=== PATIENT | male | born 1965 | race Caucasian/White ===

== ENCOUNTER 2019-07-16 08:56 | Inpatient (IN) ==
--- NOTE | 2019-06-30 14:36 | PAT Medication Instructions ---
Medication Instructions Date of Service June 30, 2019 Home Medications dulaglutide [Trulicity] 0.75 mg SUBCUT WK linagliptin-metformin [Jentadueto] 1 tab PO BID rivaroxaban [Xarelto] 20 mg PO QAM Continue as directed dulaglutide [Trulicity] 0.75 mg SUBCUT WK ASK your prescriber and surgeon rivaroxaban [Xarelto] 20 mg PO QAM DO NOT take the morning of surgery linagliptin-metformin [Jentadueto] 1 tab PO BID Take evening before surgery linagliptin-metformin [Jentadueto] 1 tab PO BID Other Notes If you have any questions please call us at [phone] or [phone] or [phone] or [phone]
--- NOTE | 2019-07-01 14:41 | Anesthesiology Consultation ---
Date of Service July 01, 2019 Assessment & Plan (1) Encounter for pre-operative examination: PCP Clearance 07/14/19 = "Medically clear for proposed surgery. CXR/EKG/labs reviewed. Need to get sugar in better control. Pt reported no symptoms of CP/SOB on exertion." CHECK BSG AM DOS Chart Review Chart Review: Acceptable Risk for Surgery and Patient seen in Pre Admission Testing Teaching & Discussion Instructed NPO after midnight before surgery, except medications with 15 cc of water. Medication instructions provided according to the PAT guidelines. History Surgery Operation Date: 07/16/19 10:35 Proposed Procedures p L1-L3 Decompression and Fusion, T12 Possible, L3-L4 Hardware Removal with Spinal Cord Monitoring - Alvino Barros, Height/Weight Height: 6 ft 1 in Weight: 144.8 kg Allergies Allergy/AdvReac Type Severity Reaction Status Date / Time No Known Allergies Allergy Verified 06/27/19 15:01 Medications Home Medications Medication Instructions Recorded Confirmed Last Taken dulaglutide [Trulicity] 0.75 mg SUBCUT WK 06/27/19 06/27/19 Unknown linagliptin-metformin [Jentadueto] 1 tab PO BID 06/27/19 06/27/19 Unknown rivaroxaban [Xarelto] 20 mg PO QAM 06/27/19 06/27/19 Unknown Past Medical History Medical History (Updated 07/15/19 @ 09:36 by Mark Sanderson) Deep vein thrombosis DVT 5 YEARS AGO IN [place] (REASON FOR XARELTO). PT UNSURE OF CAUSE OF DVT, WAS NOT SEEN BY HEME Diabetes mellitus, type 2 Gout Heart palpitations Patient describes sensation of heart racing for 5-10 mins every month or so, accompanied by dry mouth/anxiety. History of atrial flutter Post operative 2016 after lumbar fusion. Cardioverted as inpatient, returned to [facility] due to postoperative stress, no cardiac follow up and no further issues. Morbid obesity Osteoarthritis Sleep apnea CPAP Exercise / Class Metabolic Activity III < 4 Walking/Shop/Light housework (DENIES CP OR SOB WITH AMBULATION. DOES NOT DO STAIRS, MINIMAL ACTIVITY.) Past Family History Family History Mother Family history of diabetes mellitus Father Family history of diabetes mellitus Past Surgical History Surgical History Fusion of spine LUMBAR History of colonoscopy History of total knee replacement RT/LEFT Hx of vasectomy [place] teeth removed Past Anesthesia History No Hx of Anesthesia Complications and No Family Hx of Anesthesia Complications History of PONV No Hx of PONV and Hx of Motion Sickness Social History Smoking Status: Never smoker Do You Dip or Chew Tobacco: No Hx Alcohol Use: Yes Alcohol type: beer alcohol intake frequency: holidays/special occasions only Hx Substance Use: No substance use type: does not use Review of Systems Pt denies any recent chest pain, shortness of breath, cough, fever or URI. Occasional palpitations. Physical Exam Vital Signs BP: 148/83 P: 91bpm SPO2: 97% RA T: 98.3 F R: 16 Constitutional + morbidly obese ENMT Mouth: + macroglossia; no dental restorations, no chipped teeth and no loose teeth Thyromental Distance: > or= 3.5 Finger Breadths (4) Mallampati Class: I Neck + thick neck; neck extension not limited Respiratory normal respiratory effort Auscultation: lungs clear to auscultation bilaterally Cardiovascular Rate/Rhythm: regular rate and regular rhythm Heart Sounds: no murmur Vessels: no carotid bruit Extremities: no edema Psychiatric Affect: + flat affect Testing Laboratory Results 07/01/19 14:36 07/01/19 14:30 PT 15.6 Seconds (9.0-12.0) H 07/01/19 14:36 INR 1.6 (0.9-1.1) H 07/01/19 14:36 APTT 28.6 Seconds (21.0-31.0) 07/01/19 14:36 Urine Color Yellow 07/01/19 14:30 Urine Appearance Clear (Clear) 07/01/19 14:30 Urine pH 5.5 (4.5-7.5) 07/01/19 14:30 Ur Specific Tamiment 1.020 (1.000-1.030) 07/01/19 14:30 Urine Protein 1+ (Negative) H 07/01/19 14:30 Urine Glucose (UA) Negative (Negative) 07/01/19 14:30 Urine Ketones Negative (Negative) 07/01/19 14:30 Urine Nitrite Negative (Negative) 07/01/19 14:30 Ur Leukocyte Esterase Negative (Negative) 07/01/19 14:30 Urine WBC (Auto) 0 /hpf (0-5) 07/01/19 14:30 Urine RBC (Auto) 0-4 /hpf (0-4) 07/01/19 14:30 U Hyaline Cast (Auto) 0 /lpf (0-5) 07/01/19 14:30 U Epithel Cells (Auto) 5-10 /lpf (0-5) H 07/01/19 14:30 Urine Bacteria (Auto) Negative (Negative) 07/01/19 14:30 Blood Type A Positive 07/01/19 14:36 Antibody Screen NEGATIVE 07/01/19 14:36 A1C 05/31/19 = 8.9%* *Surgeon's office notified of elevated A1C Electrocardiogram Date: 07/01/19 Chest X-Ray Date: 07/01/19 FINDINGS: There is mild elevation/eventration right hemidiaphragm. There is no focal pulmonary consolidation. There is no failure. There are no pleural effusions.[Prominent right superior hilar markings are felt to be secondary to a vascular summation. IMPRESSION: No active disease in the chest.
[2019-07-01 15:03] LABS: Basophils # (auto) 0.04 K/uL (0-0.2); Basophils % (auto) 0.4 %; Eosinophils # (auto) 0.12 K/uL (0-0.5); Eosinophils % (auto) 1.3 %; Hematocrit (blood only) 44.5 % (42-52); Hemoglobin 16.5 g/dL (14.0-18.0); Immature Granulocytes # (auto) 0.04 K/uL (0.00-0.02); Immature Granulocytes % (auto) 0.4 %; Lymphocytes # (auto) 2.96 K/uL (1.2-3.4); Lymphocytes % (auto) 31.5 %; Mean Corpuscular Hemoglobin 31.4 pg (25-34); Mean Corpuscular Hgb Conc 37.1 g/dL (32-36); Mean Corpuscular Volume 84.8 fL (80-100); Mean Platelet Volume 8.5 fL (7.4-10.4); Monocytes # (auto) 0.85 K/uL (0.11-0.59); Neutrophils % (auto) 57.4 %; Platelet Count 229 K/uL (130-400); RDW Coefficient of Variation 12.5 % (11.5-14.5); Red Blood Count 5.25 M/uL (4.7-6.1); White Blood Count 9.41 K/uL (4.8-10.8)
[2019-07-01 15:23] LABS: BUN Creatinine Ratio 15.2 (10-20); Creatinine Clr Calc Pharmacy 126.6 ml/min; Est GFR (Non-African American) 84.5; Potassium 4.7 mmol/L (3.5-5.1)
[2019-07-01 15:30] LABS: INR 1.6 (0.9-1.1); Partial Thromboplastin Ratio 1.1; Partial Thromboplastin Time 28.6 Seconds (21.0-31.0); Prothrombin Time 15.6 Seconds (9.0-12.0)
--- NOTE | 2019-07-01 15:31 | XRay Report ---
XR chest Pre-admission PA/Lat CLINICAL HISTORY: Preoperative chest COMPARISON STUDY: 02/18/2016 FINDINGS: There is mild elevation/eventration right hemidiaphragm. There is no focal pulmonary consol idation. There is no failure. There are no pleural effusions.[Prominent right superior hilar markings are felt to be secondary to a vascular summation. IMPRESSION: No active disease in the chest. Electronically signed by: Srinivasan Yang M.D. 07/01/2019 3:29 PM
[2019-07-01 15:32] LABS: Appearance Urine Clear (Clear); Bacteria Urine Automated Negative (Negative); Bilirubin Urine Negative (Negative); Blood Urine Negative (Negative); Cast Urine Automated 0 /lpf (0-5); Color Urine Yellow; Glucose Urine UA Negative (Negative); Ketones Urine Negative (Negative); Leukocyte Esterase Urine Negative (Negative); Nitrite Urine Negative (Negative); Protein Urine 1+ (Negative); RBC Urine Automated 0-4 /hpf (0-4); Urobilinogen Urine Negative (Negative); WBC Urine Automated 0 /hpf (0-5); pH Urine 5.5 (4.5-7.5)
[~2019-07-16 08:56] MED LIST: ACETAMINOPHEN 500 MG TAB PO SCH; CEFAZOLIN 3000MG 72.5 ML IV SCH; CeleBREX 200 MG CAP PO SCH; GABAPENTIN 900 MG DOSE PO SCH; LR 15ML/HR IV SCH
[2019-07-16] MEDS ORDERED: HYDROmorphone INJ 2 MG/ML SYR/VIAL ONE ×3 (09:06→13:57)
[2019-07-16] MEDS ORDERED: GLYCOPYRROLATE 0.2 MG/ML VIAL ONE (09:09)
[2019-07-16] MEDS ORDERED: ONDANSETRON INJ 2 MG/ML 2 ML VIAL ONE ×2 (09:09→13:29)
[2019-07-16] MEDS ORDERED: DEXAMETHASONE SOD INJ 4 MG/ML VIAL ONE (09:09)
[2019-07-16] MEDS ORDERED: PROPOFOL IV EMULSION 10 MG/ML 20 ML VIAL IV ONE ×2 (09:09→11:25)
[2019-07-16] MEDS ORDERED: ROCURONIUM BROMIDE 10 MG/ML 5 ML VIAL ONE ×2 (09:09→13:00)
[2019-07-16] MEDS ORDERED: LIDOCAINE HCL 2% 2 ML VIAL/AMP(20MG/ML) INFIL ONE (09:09)
[2019-07-16] MEDS ORDERED: NEOSTIGMINE METHYLSULFATE 1 MG/ML 10ML VIAL ONE (09:09)
[2019-07-16] MEDS ORDERED: MIDAZOLAM HCL 1 MG/ML 2ML VIAL ONE (09:56)
[2019-07-16] MEDS ORDERED: fentaNYL citrate 100 MCG/2 ML VIAL ONE ×7 (09:56→13:30)
--- NOTE | 2019-07-16 10:22 | History & Physical Bridge Note ---
Date of Service July 16, 2019 History & Physical Bridge Note I have examined the patient, reviewed the History & Physical and in the interval since the performance of the History & Physical I have noted the following changes of clinical significance: no changes noted
--- NOTE | 2019-07-16 10:23 | History & Physical Report ---
Date of Service July 16, 2019 Assessment & Plan (1) Spinal stenosis, lumbar region with neurogenic claudication: L1 L3 decompression and fusion possible T12, L3-L4 hardware removal. Present on Admission?: Yes History of Present Illness Chief Complaint: Back and leg pain Primary Care Provider: Shanita Mi This is a 54-year-old male who presents with chronic persistent back and bilateral leg pain. After failing extensive course of nonoperative care is here for surgical intervention. Allergies Allergy/AdvReac Type Severity Reaction Status Date / Time No Known Allergies Allergy Verified 07/16/19 09:14 Home Medications Home Medications Medication Instructions Recorded Confirmed Type dulaglutide [Trulicity] 0.75 mg SUBCUT WK 06/27/19 07/16/19 History linagliptin-metformin [Jentadueto] 1 tab PO BID 06/27/19 07/16/19 History rivaroxaban [Xarelto] 20 mg PO QAM 06/27/19 07/16/19 History Past Med/Surg History Medical History (Updated 07/16/19 @ 10:23 by Alvino Barros DO) Deep vein thrombosis DVT 5 YEARS AGO IN [place] (REASON FOR XARELTO). PT UNSURE OF CAUSE OF DVT, WAS NOT SEEN BY HEME Diabetes mellitus, type 2 Gout Heart palpitations Patient describes sensation of heart racing for 5-10 mins every month or so, accompanied by dry mouth/anxiety. History of atrial flutter Post operative 2015 after lumbar fusion. Cardioverted as inpatient, returned to [facility] due to postoperative stress, no cardiac follow up and no further issues. Morbid obesity Osteoarthritis Sleep apnea CPAP Surgical History Fusion of spine LUMBAR History of colonoscopy History of total knee replacement RT/LEFT Hx of vasectomy [place] teeth removed Family History Mother Family history of diabetes mellitus Father Family history of diabetes mellitus Social History Preferred Language: Croatian Communication Ability: Effective Molder Operator Required: No Beliefs That Will Affect Care: None Current Living Situation: Alone Feels Safe at Home: Yes Safety Concerns: Feels Safe At This Time Smoking Status: Never smoker Do You Dip or Chew Tobacco: No ; Second Hand Exposure: No ; Tobacco Cessation Education Requested by Patient: No Hx Alcohol Use: Yes Alcohol type: beer Hx Substance Use: No Physical Exam Physical Exam: Patient is alert and oriented neurologically intact. Results & Data Vital Signs (Past 12 Hours) Vital Signs Temp Pulse Resp BP Pulse Ox 07/16/19 09:17 36.6 C 76 18 156/106 H 98
[2019-07-16] MEDS ORDERED: BUPIVACAINE/EPINEPHRINE 0.5% MPF 1:200,000 10 ML VIAL ONE (10:35)
[2019-07-16] MEDS ORDERED: BACITRACIN INJ 50,000 UNIT VIAL ONE (10:36)
[2019-07-16] MEDS ORDERED: HYDROmorphone INJ 1 MG/ML SYRINGE IV PRN ×2 (10:39→15:26)
[2019-07-16] MEDS ORDERED: ONDANSETRON INJ 2 MG/ML 2 ML VIAL IV PRN ×2 (10:39→15:26)
[2019-07-16] MEDS ORDERED: ATROPINE SULFATE 0.1 MG/ML 10ML SYR IV PRN (10:39)
[2019-07-16] MEDS ORDERED: LABETALOL HCL IV 5 MG/ML 20ML IV PRN (10:39)
[2019-07-16] MEDS ORDERED: THROMBIN FOR SOLN 20000 UNIT KIT ONE (10:46)
[2019-07-16] MEDS ORDERED: FLOSEAL HEMOSTATIC MATRIX 10ML TOP ONE (11:17)
[2019-07-16] MEDS ORDERED: VOLUVEN IN NSS IV ONE ×2 (12:50→13:17)
[2019-07-16] MEDS ORDERED: LARYING-O-JET KIT (LTA) ONE (12:50)
[2019-07-16] MEDS ORDERED: ePHEDrine sulfate 50 MG/ML AMP ONE (13:29)
[2019-07-16] MEDS ORDERED: KETOROLAC 30 MG/ML VIAL ONE (13:29)
--- NOTE | 2019-07-16 13:30 | Operative Report ---
Post Operative Report Pre & Post Diagnosis Operation Date: 07/16/19 10:35 Pre-Op Diagnosis: Lumbar spinal stenosis with neurogenic claudication Morbid obesity Post-Op Diagnosis: Same I identified the patient and participated in the time-out.: Yes Procedure Operation Date: 07/16/19 10:35 Actual Procedures #1 removal of posterior instrumentation L3-L4. #2 exploration of fusion L3-L4. #3 lumbar decompression with bilateral medial facetectomies and foraminotomies L1-L2 3. #4 posterior spinal fusion T12-L1 L1 L2-L3-L4. #5 placement posterior segmental instrumentation T12-L4. #6 interbody fusion L2-3. #7 placed a peek cage 12 x 26 mm at L2-3. #8 placement of locally harvested morselized autograft in the posterior lateral gutters per #9 placement infuse collagen sponge, master graft in the posterior lateral gutters and ostial amp and interbody space. Surgeon Alvino Barros, DO Extension Work Instructor Yuliya Theodore Estimated Blood Loss 575 Findings See Below The patient is 6 feet 3 inches tall weighing over 145 kg with a BMI in excess of 40. This combined with a blood loss in excess of 575 cc created significant technical difficulty throughout the procedure adding at least 50% increase in operative time. Specimens None Indications This is a 54-year-old male who presents with above-mentioned diagnosis after failed extensive course of nonoperative care is here for surgical intervention. Description of Procedure Was prepped and draped in normal sterile fashion. Sharp dissection with the assistance of Bovie cautery was performed down to and exposing the lamina and transverse processes of T12 L1-L2 and the instrumentation L3 and L4 bilaterally. And then proceed remove the hardware bilaterally explore the fusion mass noting it to be intact. Then performed a complete laminectomy of L2 and L1 from a caudal cephalad fashion including bilateral medial facetectomies and foraminotomies addressing severe stenosis. Pedicle screws were then placed in T12-L1 L2-L3-L4 bilaterally with assistance of fluoroscopy the process rad placed. By way of a transforaminal approach on the right a complete discectomy was performed endplates curetted to subcortical bleeding bone and a 12 x 26 mm peek cage filled with osteo-amp bone graft tapped in position. The rods were then locked in final position bilaterally. Transverse processes of T12 L1-L2-L3 burred to subcortical bleeding bone infuse collagen sponge master graft and local autograft was then placed in the posterior lateral gutters. 15 round GENTRY drain inserted. The incision was then closed with 1 Vicryl in the fascia 2-0 Vicryl subcutaneously and 4 Monocryl for final skin closure. Steri-Strip sterile dressings placed. Patient will continue PACU stable condition. Please note spinal cord monitoring was utilized that the procedure no changes noted. Lastly Yuliya Theodore was present for the entire procedure involved in patient positioning complex portions of the surgery and final skin closure. I attest to the content of the Intraoperative Record and any orders documented therein. Any exceptions are noted below.
[2019-07-16] MEDS ORDERED: ESMOLOL HCL INJ 10 MG/ML 10ML VIAL IV ONE (13:34)
--- NOTE | 2019-07-16 13:58 | Fluoroscopy Report ---
FL lumbar spine 2-3V CLINICAL HISTORY: 54 years-old Male presenting with L1-L3 DECOMPRESSION AND FUSION. TECHNIQUE: 4 fluoroscopic image(s) recorded as part of an intraoperative procedure. COMPARISON: 02/15/2016. FINDINGS/IMPRESSION: Prior posterior fusion hardware at L3-4 has been replaced with more extended posterior fusion hardwar e spanning from L4 inferiorly to T12 superiorly. Interbody spacers at L2-3 and L3-4 as well as pratima ctomy defects. Please see surgical report for further details. Fluoroscopy dosage (mGy): 23.09. Fluoroscopy time: 27.8 seconds. Number or time of high level fluoroscopy (HLF), digital spot, or digital subtraction images: 0. Electronically signed by: Roberto Saunders M.D. 07/16/2019 1:57 PM
--- NOTE | 2019-07-16 14:30 | Anesthesiology Progress Note ---
Date of Service July 16, 2019 Anesthesia Post Procedure Vital Signs Vital Signs: Temp Pulse Pulse Resp BP Pulse Ox 07/16/19 14:20 77 14 137/74 99 07/16/19 14:10 78 14 153/75 H 99 07/16/19 14:00 82 12 147/86 H 100 07/16/19 13:50 36.2 C L 77 12 137/77 100 07/16/19 09:17 36.6 C 76 18 156/106 H 98 Pain Intensity Lower Back: Pain Intensity: 2 Transfer of Care Handoff Completed per policy Notes Mental Status: alert / awake / arousable Patient Amnestic to Procedure: Yes Nausea / Vomiting: adequately controlled Pain: adequately controlled Airway Patency, RR, SpO2: stable & adequate BP & HR: stable & adequate Hydration State: stable & adequate Anesthetic Complications: no major complications apparent
[2019-07-16] MEDS: SODIUM CHLORIDE 0.9% 1000ML 1,000 ML IV SCH ×2 (15:15→21:45)
[2019-07-16] MEDS ORDERED: NALOXONE HCL 0.4 MG/1 ML VIAL/CARP IV PRN (15:26)
[2019-07-16] MEDS ORDERED: DO NOT ADMINISTER FLU VACCINE PRN (15:26)
[2019-07-16] MEDS ORDERED: ALUMINUM/MAGNESIUM SUSP 30 ML UDC PO PRN (15:26)
[2019-07-16] MEDS ORDERED: DO NOT ADMINISTER PNEUMOCOCCAL VACCINE PRN (15:26)
[2019-07-16] MEDS ORDERED: LORazepam 0.5 MG TAB PO PRN (15:26)
[2019-07-16] MEDS ORDERED: MAGNESIUM HYDROXIDE SUSP 30 ML UDC PO PRN (15:26)
[2019-07-16] MEDS ORDERED: FAMOTIDINE 20 MG TAB PO PRN (15:26)
[2019-07-16] MEDS ORDERED: METOCLOPRAMIDE HCL INJ 5 MG/ML 2 ML VIAL IV PRN (15:26)
[2019-07-16] MEDS ORDERED: HYDROmorphone INJ 0.5 MG/0.5 ML SYR IV PRN (15:26)
[2019-07-16] MEDS ORDERED: SOD PHOSPHATE/SOD BIPHOSPHATE ENEMA 132 ML BTL PR PRN (15:26)
[2019-07-16] MEDS ORDERED: bisacodyL 10 MG SUPP PR PRN (15:26)
[2019-07-16] MEDS ORDERED: ONDANSETRON 4 MG OD TAB PO PRN (15:26)
[2019-07-16] MEDS ORDERED: PROMETHAZINE HCL 12.5 MG in SODIUM CHLORIDE 0.9% 50 ML IV PRN (15:26)
[2019-07-16] MEDS ORDERED: LORazepam 0.5 MG/1 ML VIAL IV PRN (15:26)
[2019-07-16] MEDS ORDERED: ACETAMINOPHEN 1,000 MG/100 ML VIAL IV PRN (15:26)
--- NOTE | 2019-07-16 16:20 | Hospitalist Consultation ---
Date of Consultation July 16, 2019 Assessment & Plan (1) Spinal stenosis, lumbar region with neurogenic claudication: S/p lumbar surgery with Dr. Barros on 07/16. Complicated operative procedure with EBL of 575 mL. - Post-operative care per primary team. - Will track hgb given his significant operative blood loss (2) Diabetes mellitus, type 2: Unknown A1c. Only on oral meds. - Hold home meds - Sliding scale insulin (3) Sleep apnea: - Ordering CPAP. (4) History of atrial flutter: EKG in 06/2019 showed normal sinus. Will monitor HR. Presently in a stable rhythm and normal rate. - Monitor (5) Deep vein thrombosis: In approx 2013. - SCDs - Restart Xarelto as soon as ok with surgery. History of Present Illness Attending Physician: Alvino Barros, DO History of Present Illness 54yo M w/ hx of diabetes and remote DVT who presents as a medical consult after a lumbar surgery with Dr. Barros. Per the operative report, it was a somewhat difficult procedure due to his obesity and blood loss. At present, he is somewhat fatigued and nauseated from the anesthesia. Per the PACU, he had a period of prolonged hypoxemia after extubation for which they kept him under monitoring for a longer period of time. He notes that he had a prior DVT "years" ago and was put on Xarelto at that time. He has not had any complications from his anticoagulation use. Allergies Allergy/AdvReac Type Severity Reaction Status Date / Time No Known Allergies Allergy Verified 07/16/19 09:14 Home Medications Home Medications Medication Instructions Recorded Confirmed Type dulaglutide [Trulicity] 0.75 mg SUBCUT WK 06/27/19 07/16/19 History linagliptin-metformin [Jentadueto] 1 tab PO BID 06/27/19 07/16/19 History rivaroxaban [Xarelto] 20 mg PO QAM 06/27/19 07/16/19 History Patient History Medical History Deep vein thrombosis DVT 5 YEARS AGO IN [place] (REASON FOR XARELTO). PT UNSURE OF CAUSE OF DVT, WAS NOT SEEN BY HEME Diabetes mellitus, type 2 Gout Heart palpitations Patient describes sensation of heart racing for 5-10 mins every month or so, accompanied by dry mouth/anxiety. History of atrial flutter Post operative 2016 after lumbar fusion. Cardioverted as inpatient, returned to [facility] [place] due to postoperative stress, no cardiac follow up and no further issues. Morbid obesity Osteoarthritis Sleep apnea CPAP Surgical History Fusion of spine LUMBAR History of colonoscopy History of total knee replacement RT/LEFT Hx of vasectomy [place] teeth removed Family History Mother Family history of diabetes mellitus Father Family history of diabetes mellitus Social History Preferred Language: Gabonese Communication Ability: Effective Leader Assembler Required: No Beliefs That Will Affect Care: None Current Living Situation: Alone Feels Safe at Home: Yes Safety Concerns: Feels Safe At This Time Smoking Status: Never smoker Do You Dip or Chew Tobacco: No ; Second Hand Expos ure: No ; Tobacco Cessation Education Requested by Patient: No Hx Alcohol Use: Yes Alcohol type: beer Hx Substance Use: No Review of Systems Review of Systems: All systems reviewed & are unremarkable except as noted in HPI & below Physical Exam Constitutional: well developed, + morbidly obese and cooperative; + uncomfortable Eyes: EOM intact bilaterally; no conjunctival abnormality ENMT: external ear and nose normal, oropharynx normal Neck: trachea midline, no thyromegaly normal visual inspection Respiratory: normal respiratory effort, lungs clear to auscultation no respiratory distress Cardiovascular: RRR, no murmur, no edema Gastrointestinal (Abdomen): Inspection/Auscultation: abdomen normal to inspection and normal bowel sounds; abdomen not distended Percussion/Palpation: abdomen nontender Musculoskeletal: no cyanosis or clubbing, extremities motor strength 5/5 Spine: + lumbar spinal tenderness (Drain in place. Dressing clean/dry/intact.) Skin: no rashes, warm and dry Neurologic: moves all extremities and awake Psychiatric: Orientation: alert, oriented to person and cooperative Results & Data Vital Signs (Past 12 Hours) Vital Signs Temp Pulse Pulse Resp BP Pulse Ox 07/16/19 15:45 37.0 C 83 18 143/75 H 95 07/16/19 15:00 68 14 137/72 99 07/16/19 14:50 78 14 114/74 100 07/16/19 14:40 36.4 C L 66 14 150/70 H 99 07/16/19 14:30 36.4 C L 66 14 134/63 99 07/16/19 14:20 77 14 137/74 99 07/16/19 14:10 78 14 153/75 H 99 07/16/19 14:00 82 12 147/86 H 100 07/16/19 13:50 36.2 C L 77 12 137/77 100 07/16/19 09:17 36.6 C 76 18 156/106 H 98 PG Care Time/CCT Total # of Minutes Spent Total Time Spent with Patient: Total time spent is greater than 50% in coordination of care (as documented) at patient's floor/unit and/or counseling patient:
[2019-07-16] MEDS ORDERED: GLUCOSE 40% GEL 15 GM TUBE PO PRN (16:39)
[2019-07-16] MEDS ORDERED: DEXTROSE 50% 50 ML SYRINGE IV PRN (16:39)
[2019-07-16] MEDS ORDERED: CARBOHYDRATES FOR HYPOGLYCEMIA PO PRN (16:39)
[2019-07-16] MEDS ORDERED: GLUCOSE 10 TABS/TUBE PO PRN (16:39)
[2019-07-16] MEDS ORDERED: GLUCAGON FOR INJ 1 MG VIAL SQ PRN (16:39)
[2019-07-16] MEDS: CEFAZOLIN 2000MG 2,000 MG/15 ML SYR IV SCH (17:02)
[2019-07-16] MEDS: KETOROLAC 30 MG/ML VIAL IV SCH (17:02)
[2019-07-16] MEDS ORDERED: Nursing to Pharmacy Communication ONE (17:38)
[2019-07-16] MEDS: INSULIN ASPART 100 UNITS/ML 3 ML PEN SC SCH ×3 (17:46→20:56)
[2019-07-16] MEDS ORDERED: PHARMACY GLYCEMIC MGMT CONSULT PRN (19:31)
[2019-07-16] MEDS ORDERED: INSULIN GLARGINE SOLOSTAR 100 UNITS/ML 3 ML PEN SC ONE (20:00)
--- NOTE | 2019-07-16 20:25 | Pharmacy Report ---
Glycemic Control Consultation - Date of Service July 16, 2019 - Scope Scope: Glycemic Pharmacist consulted by Dr Mccrary on 07/16/19 for glycemic control and to write orders per [facility] inpatient glycemic control protocol - Objective Weight: 145.6 kg Accuchecks BSG (last 24hrs): 07/16/19 07/16/19 07/16/19 09:16 13:52 17:25 POC Glucose 243 H 244 H 379 H* 07/16/19 07/16/19 17:28 18:56 POC Glucose 378 H* 405 H* - Recent Pertinent Medications Outpatient Anti-diabetic Regimen: * Trulicity 0.75 mg SC weekly on Fridays * Jentadueto 2.12/999 mg PO BID * A1c pending for 07/17/19 AM The patient is currently receiving: * Basal insulin: N/A * Correctional Insulin: Novolog Correction per scale ACHS Goal Range: Low 100 mg/dL - High 140 mg/dL Correction Factor: 15 mg/dL/unit * Prandial insulin: Per carb ratio of 1 unit per 6 grams CHO consumed Risk Factors for Insulin Resistance: * Steroids: Dexamethasone 12 mg IV x 1 intraoperatively * Recent Surgery: POD #0 s/p spinal decompression/fusion * Diet:T2DM - Assessment & Plan Assessment & Plan: ASSESSMENT: * RM is a 54 year old male POD #0 s/p spinal decompression and fusion * Patient received 12 mg of dexamethasone IV intraoperatively * BSG postop was 244 mg/dL and increased to 405 mg/dL at dinnertime - pharmacy consulted at this time * A1c pending for tomorrow AM PLAN FOR INPATIENT GLYCEMIC CONTROL: * Holding outpatient oral diabetes medications * Basal insulin * Lantus 45 units given this evening (0.4 unit/kg of adjusted body weight of 109 kg) * Bolus insulin - tighten * NovoLog per scale ACHS or Q6hrs while NPO * Goal Range: Low 110 mg/dL - High 140 mg/dL * Correction Factor: 10 mg/dL/unit * Nutritional / Prandial insulin per carb ratio of 1 unit per 4 grams CHO consumed * Overnight checks at 00,04 with same parameters * Please note that the plan above was derived based on current level of insulin resistance and hospital stress. These recommendations are appropriate for inpatient admission only. Plan of care upon discharge will need to be reassessed to avoid potential outpatient hypo/hyperglycemia. Thank you.
[2019-07-16] MEDS: DOCUSATE SODIUM/SENNA 50/8.6MG TAB PO SCH (20:57)
[2019-07-16] MEDS: OXYCODONE HCL IR 5 MG TAB (IMMEDIATE RELEASE) PO PRN (21:48)
[2019-07-17] MEDS: KETOROLAC 30 MG/ML VIAL IV SCH ×3 (00:08→11:05)
[2019-07-17] MEDS: INSULIN ASPART 100 UNITS/ML 3 ML PEN SC SCH ×6 (00:09→20:51)
[2019-07-17] MEDS: CEFAZOLIN 2000MG 2,000 MG/15 ML SYR IV SCH (01:52)
[2019-07-17] MEDS: POLYETHYLENE (MIRALAX) 17 GM PACK PO SCH ×3 (05:17→19:43)
[2019-07-17 06:43] LABS: Basophils # (auto) 0.01 K/uL (0-0.2); Basophils % (auto) 0.1 %; Eosinophils # (auto) 0.02 K/uL (0-0.5); Eosinophils % (auto) 0.1 %; Hematocrit (blood only) 32.3 % (42-52); Hemoglobin 11.6 g/dL (14.0-18.0); Immature Granulocytes # (auto) 0.04 K/uL (0.00-0.02); Immature Granulocytes % (auto) 0.3 %; Lymphocytes # (auto) 1.55 K/uL (1.2-3.4); Lymphocytes % (auto) 11.1 %; Mean Corpuscular Hemoglobin 30.9 pg (25-34); Mean Corpuscular Hgb Conc 35.9 g/dL (32-36); Mean Corpuscular Volume 85.9 fL (80-100); Mean Platelet Volume 7.9 fL (7.4-10.4); Monocytes # (auto) 1.41 K/uL (0.11-0.59); Monocytes % (auto) 10.1 %; Neutrophils # (auto) 10.94 K/uL (1.4-6.5); Neutrophils % (auto) 78.3 %; Platelet Count 185 K/uL (130-400); RDW Coefficient of Variation 12.6 % (11.5-14.5); RDW Standard Deviation 39.1 fL (36.4-46.3); Red Blood Count 3.76 M/uL (4.7-6.1); White Blood Count 13.97 K/uL (4.8-10.8)
[2019-07-17 07:06] LABS: BUN Creatinine Ratio 12.4 (10-20); Calcium 8.5 mg/dl (8.5-10.1); Est GFR (African American) 91.4; Est GFR (Non-African American) 78.8; Potassium 4.6 mmol/L (3.5-5.1)
[2019-07-17 07:38] LABS: Estimated Average Glucose 194 mg/dl; Hemoglobin A1C 8.4 % (4.5-5.6)
[2019-07-17] MEDS ORDERED: INSULIN GLARGINE SOLOSTAR 100 UNITS/ML 3 ML PEN SC SCH (09:00)
--- NOTE | 2019-07-17 09:34 | Orthopedic Progress Note ---
Date of Service July 17, 2019 Assessment & Plan (1) Spinal stenosis, lumbar region with neurogenic claudication: At this time continue physical therapy monitor his GENTRY output hopefully discharge home in the next few days. Present on Admission?: Yes Subjective Back pain controlled leg symptoms improved. Physical Exam Physical Exam: Patient appears comfortable. Is good strength testing. Results & Data Vital Signs (Past 12 Hours) Vital Signs Temp Pulse Resp BP Pulse Ox 07/17/19 07:30 36.6 C 68 16 112/67 98 07/17/19 03:14 36.6 C 76 16 113/66 95 07/16/19 23:15 36.7 C 85 16 109/68 92
--- NOTE | 2019-07-17 11:59 | Pharmacy Report ---
Pharmacy Glycemic Short Note 2 - Date of Service July 17, 2019 - Glycemic Short BSG Results (Last 24 hours): 07/16/19 07/16/19 07/16/19 13:52 17:25 17:28 Glucose POC Glucose 244 H 379 H* 378 H* 07/16/19 07/16/19 07/16/19 18:56 20:33 20:36 Glucose POC Glucose 405 H* 338 H* 328 H* 07/16/19 07/17/19 07/17/19 23:57 04:00 06:22 Glucose 142 H POC Glucose 261 H 135 H 07/17/19 08:24 Glucose POC Glucose 182 H OUTPATIENT ANTIDIABETIC REGIMEN: * Trulicity 0.75 mg SC weekly on Fridays * Jentadueto 2.12/999 mg PO BID * A1c = 8.4% (07/17/19) ASSESSMENT: * RM is a 54 year old male POD #1 s/p spinal decompression and fusion. He was given a one time dose of dexamethasone 12 mg IV bulmaro-operatively. * Patient received 102 units of insulin yesterday * 45 units of basal insulin * 57 units of prandial/correctional insulin * BSGs ranging 165- 405 mg/dL over the past 24hrs * Risk factors for insulin resistance are decreasing * No further steroids ordered * Now POD # 1 s/p lumbar surgery * Anticipating insulin regimen will need decreased for the next 24hrs d/t : * AM Fasting BSG of 142 mg/dL and 182 mg/dL, therefore Basal insulin will be continued today * Post-prandial BSGs were severely elevated yesterday due to dexamethasone. I anticipate improvement today. PLAN FOR INPATIENT GLYCEMIC CONTROL: * Holding outpatient oral diabetes medications * Basal insulin * Lantus 20 units SQ this morning * Lantus SQ per scale tonight: 15 units for BSG less than 140 20 units for BSG 140-180 25 units for BSG greater than 180 * Bolus insulin - loosen * NovoLog per scale ACHS or Q6hrs while NPO * Goal Range: Low 110 mg/dL - High 140 mg/dL * Correction Factor: 15 mg/dL/unit * Nutritional / Prandial insulin per carb ratio of 1 unit per 4 grams CHO consumed * Overnight checks at 00,04 with same parameters * Please note that the plan above was derived based on current level of insulin resistance and hospital stress. These recommendations are appropriate for inpatient admission only. Plan of care upon discharge will need to be reassessed to avoid potential outpatient hypo/hyperglycemia. PLAN FOR DISCHARGE: * A1c of 8.4% (from 07/17/19) is above goal * Goal A1c of 7-8% is reasonable based on patient age and co morbidities * Please refer to the Field Professional note for discharge recommendations
[2019-07-17] MEDS: TRAMADOL HCL 50 MG TABLET PO PRN ×2 (16:36→20:48)
--- NOTE | 2019-07-17 16:56 | Hospitalist Progress Note ---
Date of Service July 17, 2019 Assessment & Plan (1) Spinal stenosis, lumbar region with neurogenic claudication: S/p lumbar surgery with Dr. Barros on 07/16. Complicated operative procedure with EBL of 575 mL. - Post-operative care per primary team. - Acute blood loss anemia - baseline hgb is ~16; down to 11.6 on 07/17. Monitor. (2) Diabetes mellitus, type 2: A1c was 8.6%. Only on oral meds. Discussed that he would need to follow up with his PCP as this isn't great control. - Hold home meds - Sliding scale insulin (3) Sleep apnea: - Ordered CPAP, but he doesn't really use it at home much. Offer inpatient if he wants it. (4) History of atrial flutter: EKG in 06/2019 showed normal sinus. Will monitor HR. Presently in a stable rhythm and normal rate. - Monitor (5) Deep vein thrombosis: In approx 2013. - SCDs - Restart Xarelto as soon as ok with surgery. Given medical stability, Hospital Medicine team will sign off. Please re-consult with any questions or concerns. Thank you for letting us assist in the care of this patient! Subjective Doing well today. No major concerns. He has been walking around and having only mild back pain. Reports no fevers/chills, chest pain, shortness of breath, abdominal pain, nausea, or vomiting. Physical Exam Constitutional: well developed, + morbidly obese, cooperative and comfortable Eyes: EOM intact bilaterally; no conjunctival abnormality ENMT: external ear and nose normal, oropharynx normal Neck: trachea midline, no thyromegaly normal visual inspection Respiratory: normal respiratory effort, lungs clear to auscultation no respiratory distress Cardiovascular: RRR, no murmur, no edema Gastrointestinal (Abdomen): Inspection/Auscultation: abdomen normal to inspection and normal bowel sounds; abdomen not distended Percussion/Palpation: abdomen nontender Musculoskeletal: no cyanosis or clubbing, extremities motor strength 5/5 Spine: + lumbar spinal tenderness (Drain in place. Dressing clean/dry/intact.) Skin: no rashes, warm and dry Neurologic: moves all extremities and awake Psychiatric: Orientation: alert, oriented to person and cooperative Results & Data Vital Signs (Past 12 Hours) Vital Signs Temp Pulse Resp BP Pulse Ox 07/17/19 15:53 36.8 C 73 18 133/88 99 07/17/19 15:15 100 07/17/19 12:00 36.7 C 70 16 109/66 97 07/17/19 07:30 36.6 C 68 16 112/67 98 PG Care Time/CCT Total # of Minutes Spent Total Time Spent with Patient: Total time spent is greater than 50% in coordination of care (as documented) at patient's floor/unit and/or counseling patient:
[2019-07-17] MEDS ORDERED: METFORMIN HCL 500 MG TAB PO SCH (17:00)
[2019-07-17] MEDS: ACETAMINOPHEN 500 MG TAB PO PRN (19:44)
[2019-07-17] MEDS: INSULIN GLARGINE SOLOSTAR 100 UNITS/ML 3 ML PEN SC SCH (20:50)
[2019-07-17] MEDS: DOCUSATE SODIUM/SENNA 50/8.6MG TAB PO SCH (20:52)
[2019-07-18] MEDS: POLYETHYLENE (MIRALAX) 17 GM PACK PO SCH ×5 (00:21→23:24)
[2019-07-18] MEDS: OXYCODONE HCL IR 5 MG TAB (IMMEDIATE RELEASE) PO PRN ×6 (01:31→23:55)
[2019-07-18 07:29] LABS: Hematocrit (blood only) 33.6 % (42-52); Hemoglobin 11.7 g/dL (14.0-18.0); Mean Corpuscular Hemoglobin 30.6 pg (25-34); Mean Corpuscular Hgb Conc 34.8 g/dL (32-36); Mean Platelet Volume 8.1 fL (7.4-10.4); Platelet Count 171 K/uL (130-400); RDW Coefficient of Variation 12.8 % (11.5-14.5); RDW Standard Deviation 41.1 fL (36.4-46.3); Red Blood Count 3.82 M/uL (4.7-6.1); White Blood Count 10.11 K/uL (4.8-10.8)
[2019-07-18] MEDS: ACETAMINOPHEN 500 MG TAB PO PRN (08:32)
[2019-07-18] MEDS: INSULIN ASPART 100 UNITS/ML 3 ML PEN SC SCH ×4 (08:53→21:13)
[2019-07-18] MEDS: INSULIN GLARGINE SOLOSTAR 100 UNITS/ML 3 ML PEN SC SCH ×2 (08:54→21:12)
--- NOTE | 2019-07-18 08:54 | Pharmacy Report ---
Pharmacy Glycemic Short Note 2 - Date of Service July 18, 2019 - Glycemic Short BSG Results (Last 24 hours): 07/17/19 07/17/19 07/17/19 12:28 17:07 20:37 POC Glucose 200 H 198 H 156 H 07/18/19 08:23 POC Glucose 181 H OUTPATIENT ANTIDIABETIC REGIMEN: * Trulicity 0.75 mg SC weekly on Fridays * Jentadueto 2.12/999 mg PO BID * A1c = 8.4% (07/17/19) ASSESSMENT: * POD #2 s/p spinal decompression and fusion. He was given a one time dose of dexamethasone 12 mg IV bulmaro-operatively on 07/16. * Patient received 102 units of insulin on 07/16 & 88 units of insulin yesterday. Insulin needs decreasing as DXM hyperglycemic effects wearing off. * 40 units of basal insulin * 48 units of prandial/correctional insulin * BSGs ranging 135- 198 mg/dL over the past 24hrs * Risk factors for insulin resistance are decreasing * No further steroids ordered * Now POD # 2 s/p lumbar surgery * Anticipating insulin regimen will need decreased for the next 24hrs d/t : * Pt is currently ordered scale based dosing of Lantus based on BSG. Insulin dosing will decrease with decreasing BSG * Post-prandial BSGs closer to goal range yesterday. No change needed PLAN FOR INPATIENT GLYCEMIC CONTROL: no changes needed today. Regimen will self adjust * Holding outpatient oral diabetes medications * Basal insulin * Lantus SQ per scale BID: 15 units for BSG less than 140 20 units for BSG 140-180 25 units for BSG greater than 180 * Bolus insulin * NovoLog per scale ACHS or Q6hrs while NPO * Goal Range: Low 110 mg/dL - High 140 mg/dL * Correction Factor: 15 mg/dL/unit * Nutritional / Prandial insulin per carb ratio of 1 unit per 4 grams CHO consumed * Overnight checks at 00,04 with same parameters * Please note that the plan above was derived based on current level of insulin resistance and hospital stress. These recommendations are appropriate for inpatient admission only. Plan of care upon discharge will need to be reassessed to avoid potential outpatient hypo/hyperglycemia. PLAN FOR DISCHARGE: * A1c of 8.4% (from 07/17/19) is above goal * Goal A1c of 7-8% is reasonable based on patient age and co morbidities * Please refer to the Ems Educator note for discharge recommendations
--- NOTE | 2019-07-18 10:18 | Orthopedic Progress Note ---
Date of Service July 18, 2019 Assessment & Plan (1) Spinal stenosis, lumbar region with neurogenic claudication: Continue physical therapy DC drain in a.m. hopefully home Sunday Present on Admission?: Yes Subjective Back pain controlled leg pain improved. Physical Exam Physical Exam: Patient is neurologically intact ambulating without difficulty. Results & Data Vital Signs (Past 12 Hours) Vital Signs Temp Pulse Pulse Resp BP Pulse Ox 07/18/19 07:30 36.8 C 68 18 114/76 98 07/17/19 23:50 36.8 C 65 16 114/64 91
[2019-07-18] MEDS: DOCUSATE SODIUM/SENNA 50/8.6MG TAB PO SCH (21:19)
[2019-07-19] MEDS: ACETAMINOPHEN 500 MG TAB PO PRN (04:15)
[2019-07-19] MEDS: POLYETHYLENE (MIRALAX) 17 GM PACK PO SCH ×2 (05:34→12:18)
[2019-07-19] MEDS: OXYCODONE HCL IR 5 MG TAB (IMMEDIATE RELEASE) PO PRN (07:04)
[2019-07-19] MEDS: INSULIN ASPART 100 UNITS/ML 3 ML PEN SC SCH ×2 (08:41→12:46)
[2019-07-19] MEDS: INSULIN GLARGINE SOLOSTAR 100 UNITS/ML 3 ML PEN SC SCH (08:43)
[2019-07-19] MEDS: TRAMADOL HCL 50 MG TABLET PO PRN (10:10)
--- NOTE | 2019-07-19 10:44 | Discharge Summary ---
Date of Service July 19, 2019 Admission HPI Per Admitting Provider This is a 54-year-old male who presents with chronic persistent back and bilateral leg pain. After failing extensive course of nonoperative care is here for surgical intervention. Principal Diagnosis Lumbar spinal stenosis with neurogenic claudication Discharge Data Allergies Allergy/AdvReac Type Severity Reaction Status Date / Time No Known Allergies Allergy Verified 07/16/19 09:14 Consultations 07/16/19 15:26 Consult Case Management - Discharge Planning Routine Consult Hospitalist Routine Procedures Performed Operation Date: 07/16/19 10:35 Actual Procedures p T12-L3 Decompression and Fusion T12-L4, Spinal Cord Monitoring, Application of Bone Morphogenetic Protein and Allograft (Not Applicable) - Alvino Barros DO s L3-L4 Hardware Removal (Not Applicable) - Alvino Barros DO Ordered Studies 07/16/19 10:35 FL fluoroscopy <1hr Routine FL lumbar spine 2-3V Routine Hospital Course (1) Spinal stenosis, lumbar region with neurogenic claudication: Patient with multilevel lumbar depression fusion tolerated this well was taken to orthopedic for postoperative. Postop day 1 is up and ambulating progressed nicely postop day #2. Postop day #3 GENTRY drainage decreased appropriately. His strength is intact. Pain is well controlled. Subsequently discharged home. Discharge orders instructions from the chart for further review. Total Time Total Time Spent Total Time Spent (In Minutes): 20 minutes Discharge Plan Discharge Items Patient Disposition: Home - Self-Care Reason For Visit: LUMBAR INTERVERTEBRAL DISC DISORDERS W/RADICULOPAT Discharge Diagnosis: Lumbar spinal stenosis with neurogenic claudication Activity: Per Instructions section Non-emergency contact: Primary Care Provider Call non-emergency contact if: you have any medication questions Follow-up/Referrals: Shanita Mi D.O. [Primary Care Provider] - Diet: Regular Addtl Attending Provider Instructions: ACTIVITY RECOMMENDATIONS: SELF CARE INSTRUCTIONS AFTER THORACIC/LUMBAR FUSIONS 1. You may walk to your tolerance. It is good exercise for your legs and back. Expect some back and intermittent leg aches and pains. 2. You may perform "counter-top" level activities (make a sandwich, juan josé with a project, etc.). 3. No bending or lifting of more than 10 pounds or back twisting of any nature (roll like a log when turning in bed). 4. You may ride in a car for 20-30 minutes at a time. No driving until after your first visit with your doctor. 5. Frequent changes of position and restricting sitting to 30 minutes at a time will help limit the amount of back spasms and stiffness you may experience. 6. You may discontinue the use of ambulatory aids (cane, crutches, etc.) once your strength and confidence allow. 7. You may help desk intern the shower and let water strike your incision when you arrive home at least once daily. Do not take a tub bath, sit in a hot tub or go into a swimming pool until after your first recheck in the office. SPECIAL CARE INSTRUCTIONS: VERY IMPORTANT TO READ AND REVIEW A. Your surgical incision has been closed with a cosmetic suture under the skin that will dissolve in about 6 weeks. In 14 days, you can use a pair of clean scissors and cut the suture that is left outside of the skin at the ends of your incision. 1. The small skin tapes can be removed 7 days after surgery if they have not fallen off by that point. 2. You may keep the wound open to air as much as possible to promote healing after post-op day number 5 unless told otherwise by your doctor. 3. If you think the wound looks like it is becoming infected (redness or worsening drainage) and/or you are experiencing fever, chill or worsening back pain and muscle spasms, contact the office so that we may evaluate you as soon as possible. B. Complications are uncommon, but please contact us if you have any signs or symptoms of: 1. wound infection (fever higher than 102.5 degrees F, redness, separation of wound, drainage, or increasing pain from the incision) 2. blood clots in legs (pain, swelling, redness and warmth in legs) 3. urinary tract infection (fever higher than 102.5 degrees F, burning upon urination or increased frequency of urination) 4. nerve problems (inability to walk on your toes or heels, numbness, loss of bowel or bladder control) 5. any other symptoms that concern you C. Please call the office at if you have any concerns or questions about your operation or recovery. D. No smoking! Smoking drastically decreases the chance of a solid fusion. E. Do not take any anti-inflammatory medications (Indocin, Advil, Motrin, Aspirin, Naprosyn, etc.) as these may inhibit the chance of a solid fusion. Tylenol is okay to take for pain. MANAGING PAIN AFTER SPINAL SURGERY 1. Narcotic medication is intended for short-term use and will be provided for surgical pain. Surgical pain usually lasts for a period of 4-6 weeks. Narcotic medication includes Percocet, Vicodin, Darvocet, Tylenol #3 or Lortab. 2. Longer-term pain is more appropriately treated with non-narcotic medication such as Tylenol ES. 3. Muscle spasm is not appropriately treated with narcotics. Muscle relaxers such as Soma, Flexeril or Skelaxin can be used along with Tylenol ES. 4. Remember that we all live with some "aches and pains". This is not unusual or uncommon after an injury or as we get older. a. Back pain is expected and may include muscle spasms for 4 to 6 weeks after surgery. The pain should gradually improve. If the pain worsens for no apparent reason, please contact the office. b. Intermittent leg pain may also be experienced and should not be concerned about unless it worsens for no apparent reason. If so, please contact the office. 5. We will provide appropriate medication within the normal guidelines of their prescribed use. We will also be very cautious and aware of potential abuse and extended duration of patients' medication needs. a. Pain medications are for your comfort and to assist with sleep and rest so that the tissue can heal. They are not provided in order to return to normal activity and should not be used through the day. To do so or worsening pain at night can result from ongoing tissue damage and development of tolerance to the prescribed medicine. 6. Please allow 2-3 days to process refills. Prescriptions will not be mailed but must be picked up at the office. FOLLOW UP VISIT: Keep your scheduled follow-up appointment. Any questions, please call the office at . Pending Studies at Discharge: No Stand-Alone Forms: [employer], Smoking Cessation Medications and DC Order Prescriptions: New tramadol 50 mg tablet 50 mg PO Q6H PRN (Reason: pain, moderate) Qty: 30 RF: 0 oxycodone 5 mg tablet 5 mg PO Q6H PRN (Reason: pain, severe) Qty: 30 RF: 0 Continued Xarelto 20 mg Tablet 20 mg PO QAM RF: 0 Jentadueto 2.5-1,000 mg Tablet 1 tab PO BID RF: 0 Trulicity 0.75 mg/0.5 mL Pen Injector 0.75 mg SUBCUT WK RF: 0 Discharge Orders: Discharge Order (Routine); Ordered 07/19/19 Ordered By: Alvino Starr/Other Patient Handouts: Diabetes Fdc Complications, Diabetes Resources, Diabetes Type 2 Coping, Diabetes Healthy Meals, Diabetes Carbs, Diabetes Exercise Benefits, Diabetes Activity Tips, Diabetes Living Life, Diabetes Manage A1C Test Admission Data Admit Date/Time: 07/16/19 13:55 Attending Provider: Alvino Barros Admit Provider: Alvino Barros Primary Care Provider: Shanita Mi Other Providers: Miguel Ramirez
== END 2019-07-19 12:56 | disposition home or self-care (01) | DRG 460 ==
LOC: ASU 08:56 → 3E 13:55